=== PATIENT | male | born 1995 | race Caucasian/White ===

== ENCOUNTER 2019-06-08 19:03 | Emergency (ER) | payer OTHER ==
[~2019-06-08] VITALS: Ht 182.9 cm; Wt 100.0 kg
[2019-06-08] MEDS ORDERED: TETRACAINE 0.5% OPHTH SOLN 4ML OU ONE (19:45)
[2019-06-08] MEDS ORDERED: TROPICAMIDE 0.5% OPHTH SOLN 15 ML OU ONE (19:45)
[2019-06-08] MEDS ORDERED: TOBRADEX OPHTH SUSP 2.5 ML OS ONE (21:30)
[2019-06-08 23:22] VITALS: BP 143/92
== END 2019-06-08 23:34 | disposition short-term general hospital (02) ==
LOC: EDBD 19:03 → M ED 19:03
DX: S05.8X2A Other injuries of left eye and orbit, initial encounter (principal); W34.00XA Accidental discharge from unspecified firearms or gun, initial encounter; Y92.89 Other specified places as the place of occurrence of the external cause; T15.92XA Foreign body on external eye, part unspecified, left eye, initial encounter; Y99.1 Military activity